=== PATIENT | male | born 1990 | race Caucasian/White ===

== ENCOUNTER 2016-09-29 12:54 | Observation (INO) | payer OTHER ==
[~2016-09-29] VITALS: Ht 182.9 cm; Wt 113.0 kg
[2016-09-29 14:43] LABS: CHLORIDE 100 mEq/L (99-109); POTASSIUM 4.3 mEq/L (3.7-5.4); PROTHROMBIN TIME 10.3 (9.2-11.2); PTT 30.7 (25-32); SODIUM 135 mEq/L (136-147)
[2016-09-29 14:45] LABS: GLUCOSE 159 mg/dL (70-99)
[2016-09-29 14:46] LABS: ANION GAP 11 MEQ/L (2-14)
[2016-09-29 14:49] LABS: GFR ESTIMATE (CALCULATED) > 59 mL/min/
[2016-09-29 14:50] LABS: UREA NITROGEN (BUN) 9 mg/dL (9-23)
[2016-09-29 17:05] LABS: EOSINOPHIL (%) 1.9 % (0-5); EOSINOPHIL COUNT 0.2 K/uL (0-0.3); HEMATOCRIT 41.9 % (38.0-50.0); IMMATURE GRANULOCYTE (%) 0.3 % (0.0-0.7); IMMATURE GRANULOCYTE COUNT 0.3 K/uL; LYMPHOCYTE COUNT 2.7 K/uL (1.0-2.8); MCH 29.6 PG (29.0-34.0); MCHC 34.4 G/DL (30.0-36.0); MCV 86.2 FL (86-99); MEAN PLAT.VOLUME 10.6 uM^3 (9.0-12.4); MONOCYTE (%) 13.9 % (3-12); MONOCYTE COUNT 1.6 K/uL (0-0.8); NEUTROPHIL (%) 59.7 % (45-76); NEUTROPHIL COUNT 6.8 K/uL (1.8-6.4); PLATELET COUNT 309 K/uL (156-360); RBC DIS.WIDTH-CV 12.9 % (11.8-14.6); RED BLOOD COUNT 4.86 M/uL (4.00-5.50); WHITE BLOOD COUNT 11.4 K/uL (4.1-10.2)
[2016-09-29 20:20] VITALS: BP 126/67
[2016-09-29 22:28] LABS: PROTHROMBIN TIME 10.5 (9.2-11.2); PTT 32.9 (25-32)
[2016-09-29 23:55] VITALS: BP 133/74
[2016-09-30 03:37] VITALS: BP 118/65
[2016-09-30 06:47] LABS: HEMATOCRIT 39.9 % (38.0-50.0); MCH 28.6 PG (29.0-34.0); MCHC 32.3 G/DL (30.0-36.0); MCV 88.5 FL (86-99); MEAN PLAT.VOLUME 11.1 uM^3 (9.0-12.4); PLATELET COUNT 291 K/uL (156-360); RBC DIS.WIDTH-CV 13.2 % (11.8-14.6); RBC DIS.WIDTH-SD 42.4 % (39-53); RED BLOOD COUNT 4.51 M/uL (4.00-5.50); WHITE BLOOD COUNT 10.7 K/uL (4.1-10.2)
[2016-09-30 07:17] LABS: ALKALINE PHOSPHATASE 49 IU/L (3-129); ANION GAP 7 MEQ/L (2-14); CHLORIDE 99 MEQ/L (99-109); GFR ESTIMATE (CALCULATED) > 59 mL/min/; GLUCOSE 129 mg/dL (70-99); POTASSIUM 4.7 MEQ/L (3.7-5.4); SAMPLE HEMOLYSIS CHECK 0; SAMPLE ICTERIC CHECK 0; SAMPLE LIPEMIA CHECK 0; SODIUM 135 MEQ/L (136-147); TOTAL BILIRUBIN 0.6 MG/DL (0.0-1.0); UREA NITROGEN (BUN) 12 mg/dL (9-23)
[2016-09-30 08:11] VITALS: BP 115/82
[2016-09-30 12:17] VITALS: BP 123/76
[2016-09-30] MEDS ORDERED: ELIQUIS5 MG PO ×2 (12:58→12:59)
[2016-09-30] MEDS ORDERED: IBUPROFEN400 MG PO (12:59)
[2016-09-30 13:19] VITALS: BP 123/76
[2016-09-30] MEDS ORDERED: TRAMADOL HCL50 MG PO (14:28)
[2016-10-02 10:00] LABS: THROMBIN TIME+ 14 sec
[2016-10-15 11:03] LABS: ANTITHROMBIN III ACTIVITY+ 32 % activi (80-120); DRVVT Mixing Study Interp Not Indicated (()); PROTEIN C FUNCTIONAL ACTIVITY+ 132 % (70-180); PTT-LA 45 sec (<=40); PTT-LA Reflex Has been added (()); Protein S, Free 107 % normal (57-171); Thrombosis Consult Level Limited (()); dRVVT Screen 38 sec (<=45)
== END 2016-09-30 16:43 | disposition home or self-care (01) ==
LOC: EME 12:54 → 5SOUTH 16:57 → EDOF 16:57 → 5SOUTH 19:15
PROVIDERS: Anesthesiology; Internal Medicine; Physician Assistant
DX: I26.99 Other pulmonary embolism without acute cor pulmonale (principal); I82.442 Acute embolism and thrombosis of left tibial vein; E87.1 Hypo-osmolality and hyponatremia; R73.9 Hyperglycemia, unspecified; D72.829 Elevated white blood cell count, unspecified; F17.210 Nicotine dependence, cigarettes, uncomplicated
CPT/HCPCS: 71020; 71275; 80048; 80053; 81240 90; 83090 90; 85025; 85027; 85240 90; 85300 90; 85303 90; 85305 90; 85306 90; 85307 90; 85610; 85613 90; 85670 90; 85730; 85730 90; 86146 90; 86147 90; 93971; 99281; 99285; G0378; J1170; J1885; J2270

== ENCOUNTER 2016-10-10 21:09 | Emergency (ER) | payer OTHER ==
[~2016-10-10] VITALS: Ht 180.3 cm; Wt 111.0 kg
[~2016-10-10 21:09] MED LIST: ELIQUIS5 MG PO; IBUPROFEN400 MG PO; TRAMADOL HCL50 MG PO
[2016-10-10 21:38] LABS: HEMATOCRIT 41.8 % (38.0-50.0); MCH 29.8 PG (29.0-34.0); MCV 87.6 FL (86-99); MEAN PLAT.VOLUME 9.8 uM^3 (9.0-12.4); PLATELET COUNT 247 K/uL (156-360); RBC DIS.WIDTH-CV 12.6 % (11.8-14.6); RBC DIS.WIDTH-SD 40.9 % (39-53); RED BLOOD COUNT 4.77 M/uL (4.00-5.50); WHITE BLOOD COUNT 12.6 K/uL (4.1-10.2)
[2016-10-10 21:51] LABS: CHLORIDE 102 mEq/L (99-109); POTASSIUM 4.1 mEq/L (3.7-5.4); SODIUM 135 mEq/L (136-147)
[2016-10-10 21:53] LABS: GLUCOSE 111 mg/dL (70-99)
[2016-10-10 21:54] LABS: ANION GAP 10 MEQ/L (2-14)
[2016-10-10 21:56] LABS: GFR ESTIMATE (CALCULATED) > 59 mL/min/
[2016-10-10 21:57] LABS: UREA NITROGEN (BUN) 14 mg/dL (9-23)
[2016-10-10 21:59] LABS: INTER. NORMALIZED RATIO 1.1; PROTHROMBIN TIME 10.7 (9.2-11.2); PTT 29.4 (25-32); TROP-I INTERPRETATION NEGATIVE; TROPONIN-I < 0.01 ng/mL (0.0-0.30)
[2016-10-11 00:04] VITALS: BP 119/69
== END 2016-10-11 00:05 | disposition home or self-care (01) ==
LOC: EME 21:09
PROVIDERS: Emergency Medicine
DX: I26.99 Other pulmonary embolism without acute cor pulmonale (principal); Z86.718 Personal history of other venous thrombosis and embolism; Z86.711 Personal history of pulmonary embolism; F17.200 Nicotine dependence, unspecified, uncomplicated
CPT/HCPCS: 71020; 71275; 80048; 84484; 85027; 85610; 85730; 93005; 99281; 99285; J1885

== ENCOUNTER 2016-12-27 06:45 | Inpatient (IN) | payer OTHER ==
[~2016-12-27] VITALS: Ht 182.9 cm; Wt 107.9 kg
[2016-12-27 07:50] LABS: MCH 29.9 PG (29.0-34.0); MCHC 34.3 G/DL (30.0-36.0); MCV 87.3 FL (86-99); MEAN PLAT.VOLUME 10.3 uM^3 (9.0-12.4); PLATELET COUNT 224 K/uL (156-360); RBC DIS.WIDTH-CV 12.9 % (11.8-14.6); RBC DIS.WIDTH-SD 41.8 % (39-53); RED BLOOD COUNT 4.81 M/uL (4.00-5.50); WHITE BLOOD COUNT 9.4 K/uL (4.1-10.2)
[2016-12-27 08:14] VITALS: BP 126/66
[2016-12-27 08:43] LABS: ANION GAP 10 MEQ/L (2-14); CHLORIDE 102 MEQ/L (99-109); POTASSIUM 3.4 MEQ/L (3.7-5.4); SAMPLE HEMOLYSIS CHECK 0; SAMPLE ICTERIC CHECK 0; SAMPLE LIPEMIA CHECK 0; SODIUM 136 MEQ/L (136-147)
[2016-12-27 08:49] LABS: GFR ESTIMATE (CALCULATED) > 59 mL/min/; GLUCOSE 136 mg/dL (70-99); UREA NITROGEN (BUN) 9 mg/dL (9-23)
[2016-12-27 08:58] LABS: TROP-I INTERPRETATION NEGATIVE; TROPONIN-I < 0.01 ng/mL (0.0-0.30)
[2016-12-27] MEDS ORDERED: ELIQUIS5 MG PO (10:57)
[2016-12-27] MEDS ORDERED: GABAPENTIN300 MG PO (10:58)
[2016-12-27] MEDS ORDERED: QUETIAPINE FUM100 MG PO (10:59)
[2016-12-27] MEDS ORDERED: STRATTERA80 MG PO (10:59)
[2016-12-27] MEDS ORDERED: LITHIUM CARBON300 M1 PO (11:00)
[2016-12-27 11:06] LABS: PROTHROMBIN TIME 10.5 (9.2-11.2); PTT 31.5 (25-32)
[2016-12-27 13:30] VITALS: BP 139/87
[2016-12-27 15:56] LABS: TROP-I INTERPRETATION NEGATIVE; TROPONIN-I < 0.01 ng/mL (0.0-0.30)
[2016-12-27 16:17] VITALS: BP 137/95
[2016-12-27 19:51] VITALS: BP 148/89
[2016-12-27 20:45] VITALS: BP 148/89
[2016-12-27 21:17] LABS: TROP-I INTERPRETATION NEGATIVE; TROPONIN-I < 0.01 ng/mL (0.0-0.30)
== END 2016-12-27 21:38 | disposition left against medical advice (07) | DRG 176 ==
LOC: EME 06:45 → EDOF 11:08 → 5SOUTH 13:19
PROVIDERS: Emergency Medicine; Internal Medicine
DX: I26.99 Other pulmonary embolism without acute cor pulmonale (principal); Z86.718 Personal history of other venous thrombosis and embolism; Z79.01 Long term (current) use of anticoagulants; F17.210 Nicotine dependence, cigarettes, uncomplicated; E87.6 Hypokalemia; I45.10 Unspecified right bundle-branch block; Z86.711 Personal history of pulmonary embolism
CPT/HCPCS: 71275; 80048; 81240 90; 83090 90; 83880; 84484; 85027; 85240 90; 85300 90; 85303 90; 85305 90; 85306 90; 85610; 85613 90; 85730; 85730 90; 86146 90; 86147 90; 93005; 93306; 93970; 99281; 99285; J1170; J2270; J7030

== ENCOUNTER 2017-03-15 21:47 | Emergency (ER) | payer OTHER ==
[~2017-03-15] VITALS: Ht 182.9 cm; Wt 110.0 kg
[~2017-03-15 21:47] MED LIST changes: +GABAPENTIN300 MG PO; +LITHIUM CARBON300 M1 PO; +QUETIAPINE FUM100 MG PO; +STRATTERA80 MG PO
[2017-03-16 00:33] VITALS: BP 131/75
== END 2017-03-16 00:33 | disposition home or self-care (01) ==
LOC: EME 21:47
PROC: 0HQFXZZ Repair Right Hand Skin, External Approach (ICD-10-PCS; principal; 2017-03-15)
DX: S61.411A Laceration without foreign body of right hand, initial encounter (principal); S60.221A Contusion of right hand, initial encounter; W25.XXXA Contact with sharp glass, initial encounter; Z88.0 Allergy status to penicillin
CPT/HCPCS: 73130; 99281; 99284